=== PATIENT | male | born 1975 | race Two or more races ===

== ENCOUNTER 2021-08-26 16:38 | Inpatient (IN) | payer OTHER ==
[~2021-08-26] VITALS: Ht 170.2 cm; Wt 69.7 kg
[2021-08-26] MEDS ORDERED: MORPHINE SULFATE 4 MG/ML CPJ (NOT FOR IM USE) IV STA (17:24)
[2021-08-26] MEDS ORDERED: ONDANSETRON HCL 4MG/2ML INJ IV ONE (17:30)
[2021-08-26] MEDS ORDERED: SODIUM CHLORIDE 0.9% 1,000 ML IV ONE ×2 (17:30→22:15)
[2021-08-26 17:40] LABS: BASOPHILS % 1.4 % (0.0-2.0); CHLORIDE 109 mEq/L (98-107); EOSINOPHILS % 10.3 % (0.0-5.0); HEMATOCRIT. 44.9 % (42.0-52.0); HEMOGLOBIN. 15.4 g/dL (14.0-18.0); LYMPHOCYTES % 27.9 % (20.0-50.0); MEAN CORPUSCULAR HEMOGLOBIN 29.7 pg (28.0-32.0); MEAN CORPUSCULAR VOLUME 86.6 fL (80.0-94.0); MEAN PLATELET VOLUME 7.5 fl (7.4-10.4); MONOCYTES % 5.7 % (2.0-8.0); NEUTROPHILS % 54.7 % (40.0-76.0); PLATELET 334 x1000/uL (130-400); RED BLOOD CELL COUNT 5.19 mill/uL (4.7-6.1)
[2021-08-26] MEDS ORDERED: KETOROLAC 15MG/ML VIAL IV ONE (18:00)
[2021-08-26] MEDS ORDERED: IPRATROPIUM BROMIDE (0.02%) 0.5MG/2.5ML NEB HHN STA ×2 (19:39→20:19)
[2021-08-26] MEDS ORDERED: ALBUTEROL (0.083%) 2.5MG/3ML NEB HHN STA ×2 (19:39→20:19)
[2021-08-26] MEDS ORDERED: PREDNISONE 20MG TABLET PO ONE (19:45)
[2021-08-26 20:40] LABS: CLARITY URINE CLEAR (CLEAR); COLOR URINE YELLOW (YELLOW); KETONES URINE NEGATIVE (NEGATIVE); LEUKOCYTE ESTERASE URINE NEGATIVE (NEGATIVE); NITRITE URINE NEGATIVE (NEGATIVE); OCCULT BLOOD URINE 2+ (NEGATIVE); PROTEIN URINE NEGATIVE (NEGATIVE); SPECIFIC GRAVITY URINE 1.015 (1.005-1.030); UROBILINOGEN URINE 0.2 E.U./dL (0.2-1.0)
[2021-08-26] MEDS ORDERED: MAGNESIUM 2 G PREMIX 50 ML IV ONE (20:45)
[2021-08-26] MEDS ORDERED: MORPHINE SULFATE 4 MG/ML CPJ (NOT FOR IM USE) IV ONE (20:45)
[2021-08-27 00:40] VITALS: BP 125/71
[2021-08-27] MEDS ORDERED: ALBU6.7H9 INH (01:24)
[2021-08-27] MEDS ORDERED: ONDANSETRON HCL 4MG/2ML INJ IV PRN (01:45)
[2021-08-27] MEDS ORDERED: HYDROCODONE/ACETAMINOPHEN 5/325MG TABLET PO PRN (01:45)
[2021-08-27] MEDS ORDERED: NALOXONE HCL 0.4MG/ML VIAL IV PRN (02:00)
[2021-08-27 04:00] VITALS: BP 111/70
[2021-08-27] MEDS: MORPHINE SULFATE 2 MG/ML CPJ (NOT FOR IM USE) IV PRN ×2 (04:26→09:08)
[2021-08-27 08:00] VITALS: BP 119/73
[2021-08-27] MEDS ORDERED: ENOXAPARIN 30MG/0.3ML SYR SUBCUT SCH (09:00)
[2021-08-27 09:50] LABS: BASOPHILS % 0.3 % (0.0-2.0); EOSINOPHILS % 0.4 % (0.0-5.0); HEMATOCRIT. 43.3 % (42.0-52.0); HEMOGLOBIN. 14.3 g/dL (14.0-18.0); LYMPHOCYTES % 8.1 % (20.0-50.0); MEAN CORPUSCULAR HEMOGLOBIN 29.1 pg (28.0-32.0); MEAN PLATELET VOLUME 7.5 fl (7.4-10.4); MONOCYTES % 1.5 % (2.0-8.0); NEUTROPHILS % 89.7 % (40.0-76.0); PLATELET 340 x1000/uL (130-400); RED BLOOD CELL COUNT 4.92 mill/uL (4.7-6.1); RED CELL DISTRIBUTION WIDTH 13.8 % (11.6-14.6)
[2021-08-27] MEDS: IPRATROPIUM/ALBUTEROL 0.5-3(2.5)MG/3ML NEB HHN SCH ×2 (09:50→17:20)
[2021-08-27 09:57] LABS: CHLORIDE 110 mEq/L (98-107)
[2021-08-27 12:00] VITALS: BP 110/77
[2021-08-27] MEDS ORDERED: KETOROLAC 30MG/ML VIAL IV PRN (12:45)
[2021-08-27 16:00] VITALS: BP 107/52
[2021-08-27 18:24] VITALS: BP 107/52
[2021-08-28] MEDS ORDERED: ENOXAPARIN 40MG/0.4ML SYR SUBCUT SCH (09:00)
[2021-08-28] MEDS ORDERED: TAMSULOSIN HCL 0.4MG SR CAPSULE PO SCH (09:00)
== END 2021-08-27 18:40 | disposition home or self-care (01) | DRG 465 ==
LOC: ER 16:38 → 6EST 22:11 → EDBEDREQ 22:14 → EDBEDREQTM 22:14 → ENRESERV 22:35
PROVIDERS: ADMIT Internal Medicine; ATTEND Internal Medicine
DX: N13.30 Unspecified hydronephrosis (principal); I10 Essential (primary) hypertension; J45.909 Unspecified asthma, uncomplicated; N28.89 Other specified disorders of kidney and ureter; Z79.899 Other long term (current) drug therapy; Z20.822 Contact with and (suspected) exposure to COVID-19
CPT/HCPCS: 36415; 71045; 74176; 80053; 81003; 85025; 87426; 94640; 99285; J1650; J1885; J2270; J2405; J3475; J7030; J7512